=== PATIENT | male | born 1960 | race Caucasian/White ===

== ENCOUNTER 2017-01-22 09:59 | Emergency (ER) | payer MEDICAID, OTHER ==
--- NOTE | 2017-01-22 12:24 | ED ---
Psychiatric Complaint - HPI Summary HPI Summary: 56 male presents with complaints of feeling very anxious and agitated over the past couple of days. He states he needs to be put somewhere and strapped down. He has not taken his night time medications yet. States he gets anxious and breathes quickly when experiencing anxiety attacks. He does not have a reason for his complaints/symptoms. Patient denies alcohol or drug use. Admits to hallucinations and auditory voices. States "he watches people walk by". He has not eaten since yesterday morning because he is anxious, besides orange juice that "he drank really fast". Denies homicidal/suicidal ideations. Has previous psych history. PMHx of HTN and asthma. Denies any other pain or complaints at this time. - History Of Current Complaint Chief Complaint: EDMentalHealth Time Seen by Provider: 01/22/17 11:51 Hx Obtained From: Patient Character: Frustrated Aggravating Factor(s): Nothing Alleviating Factor(s): Nothing Associated Signs And Symptoms: Positive: Hostile, Hallucinating, Paranoid Behavior Related History: Positive For: Prior Psychiatric Issues Has Suicidal: Denies: Thoughts, With A Plan Has Homicidal: Denies: Thoughts, With A Plan - Allergies/Home Medications Allergies/Adverse Reactions: Allergies Allergy/AdvReac Type Severity Reaction Status Date / Time Lisinopril Allergy Intermediate Swelling Verified 01/22/17 10:01 Of Face,Lips,& Throat Home Medications: Home Medications Citalopram TAB* [CeleXA TAB*] 40 mg PO DAILY 01/22/17 [History Confirmed ] Triamterene/HCTZ 37.5-25 MG* 1 tab PO DAILY 01/22/17 [History Confirmed 01/22/17 ] PMH/Surg Hx/FS Hx/Imm Hx Endocrine/Hematology History: Denies: Hx Diabetes Cardiovascular History: Reports: Hx Hypertension - on meds Denies: Hx Pacemaker/ICD History: Reports: Hx Kidney Infection Musculoskeletal History: Reports: Hx Orthopedic Injury - hx. of right ankle fx, Other Musculoskeletal History - bilateral hip replacements Sensory History: Reports: Hx Contacts or Glasses, Hx Hearing Problem Denies: Hx Hearing Aid Opthamlomology History: Reports: Hx Contacts or Glasses Neurological History: Reports: Hx Developmental Delay, Hx Headaches Denies: Hx Dementia, Hx Migraine, Hx Nerve Disease, Hx Seizures, Hx Spinal Cord Injury, Hx Transient Ischemic Attacks (TIA) Psychiatric History: Reports: Hx Anxiety, Hx Depression Denies: Hx Eating Disorder, Hx Panic Disorder, Hx of Violent Episodes Against Others - Surgical History Surgery Procedure, Year, and Place: bilateral hip replacement, surgery to right ankle Hx Anesthesia Reactions: No - Immunization History Immunizations Up to Date: Yes Infectious Disease History: No Infectious Disease History: Denies: Hx Clostridium Difficile, Hx Hepatitis, Hx Human Immunodeficiency Virus (HIV), Hx of Known/Suspected MRSA, Hx Shingles, Hx Tuberculosis, Hx Known/ Suspected VRE, Hx Known/Suspected VRSA, History Other Infectious Disease, Traveled Outside the [place] in Last 30 Days - Family History Known Family History: Positive: None - Social History Alcohol Use: Rare Substance Use Type: Reports: None Smoking Status (MU): Current Every Day Smoker Type: Cigarettes Amount Used/How Often: 1/2 PPD Have You Smoked in the Last Year: Yes Review of Systems Constitutional: Negative Eyes: Negative Positive: Nasal Discharge Cardiovascular: Negative Respiratory: Negative Gastrointestinal: Negative Genitourinary: Negative Neurological: Negative Psychological: Normal All Other Systems Reviewed And Are Negative: Yes Physical Exam Triage Information Reviewed: Yes Vital Signs On Initial Exam: Initial Vitals Temp Pulse Resp BP Pulse Ox 97.5 F 90 20 129/81 95 01/22/17 10:02 01/22/17 10:02 01/22/17 10:02 01/22/17 10:02 01/22/17 10:02 Vital Signs Reviewed: Yes Appearance: Positive: Well-Appearing, No Pain Distress, Well-Nourished Skin: Positive: Warm, Skin Color Reflects Adequate Perfusion, Dry Head/Face: Positive: Normal Head/Face Inspection Eyes: Positive: Normal, EOMI, KARYN, Conjunctiva Clear ENT: Positive: Normal ENT inspection, Hearing grossly normal Neck: Positive: Supple, Nontender, No Lymphadenopathy Respiratory/Lung Sounds: Positive: Clear to Auscultation, Breath Sounds Present Cardiovascular: Positive: Normal, RRR, Pulses are Symmetrical in both Upper and Lower Extremities Abdomen Description: Positive: Nontender, No Organomegaly, Soft Bowel Sounds: Positive: Present Musculoskeletal: Positive: Normal, Strength/ROM Intact Neurological: Positive: Normal, Sensory/Motor Intact, Alert, Oriented to Person Place, Time, CN Intact II-III, Reflexes Intact, NV Bundle Intact Distally, Normal Gait, Facial Symmetry, Speech Normal Psychiatric: Positive: Anxious, Other - patient is shaking hands and feet during exam AVPU Assessment: Alert - Lyman Coma Scale Coma Scale Total: 15 Diagnostics - Vital Signs Vital Signs Temp Pulse Resp BP Pulse Ox 01/22/17 10:07 97.5 F 92 20 129/81 96 01/22/17 10:02 97.5 F 90 20 129/81 95 - Laboratory Result Diagrams: 01/22/17 12:33 01/22/17 12:33 Lab Statement: Any lab studies that have been ordered have been reviewed, and results considered in the medical decision making process. Re-Evaluation - Re-Evaluation First Eval Re-Evaluation Time: 13:00 Change: Unchanged - patient was doing well, eating and drinking Course/Dx - Course Course Of Treatment: patient medically cleared. will have mental health evaluation - Differential Dx/Clinical Impression Differential Diagnosis/HQI/PQRI: Positive: Acute Psychosis, Anxiety, Depression , Other Provider Diagnosis: Anxiety, Acute psychosis - Physician Notifications Patient Is Medically Stable For: Psych Evaluation Discharge - Discharge Plan Condition: Stable Disposition: OTHER Discharge Disposition Comment: signed out to Lenora Alcantara PA-C at shift change- Awaiting mental healt eval Referrals: Herb Jordan MD [Primary Care Provider] -
[2017-01-22 12:55] LABS: Hematocrit 45 % (42-52); Hemoglobin 15.5 g/dl (14.0-18.0); Mean Corpuscular HGB Conc 34 g/dl (31-36); Mean Corpuscular Hemoglobin 31 pg (27-31); Mean Corpuscular Volume 90 fL (80-94); Mean Platelet Volume 10 um3 (7.4-10.4); Red Blood Count 5.02 10^6/ul (4.0-5.4); Red Cell Distribution Width 13 % (10.5-15); White Blood Count 8.5 10^3/ul (3.5-10.8)
[2017-01-22 13:02] LABS: ALT 24 U/L (7-52); AST 26 U/L (13-39); Albumin 4.3 g/dL (3.2-5.2); Alkaline Phosphatase 62 U/L (34-104); Anion Gap 9 mmol/L (2-11); BUN/Creatinine Ratio 18.7 (8-20); Blood Urea Nitrogen 20 mg/dL (6-24); CO2 Carbon Dioxide 26 mmol/L (22-32); Calcium 9.9 mg/dL (8.6-10.3); Chloride 101 mmol/L (101-111); EGFR African American 91.3 (>60); Globulin 3.7 g/dL (2-4); Glucose 119 mg/dL (70-100); Potassium 3.3 mmol/L (3.5-5.0); Sodium 136 mmol/L (133-145)
[2017-01-22 14:23] LABS: Acetaminophen < 15 mcg/mL; Alcohol < 10 mg/dL (<10); Salicylate < 2.50 mg/dL (<30)
[2017-01-22 14:30] LABS: TSH (Thyroid Stimulating Horm) 0.76 mcIU/mL (0.34-5.60)
[2017-01-23 09:33] VITALS: BP 111/72
== END 2017-01-23 08:25 | disposition home or self-care (01) ==
LOC: ED 09:59
DX: F23 Brief psychotic disorder (principal); F41.9 Anxiety disorder, unspecified
CPT/HCPCS: 36415; 80053; 80320; 80329; 84443; 85025; 99285; G0480

== ENCOUNTER 2018-11-12 19:12 | Emergency (ER) | payer MEDICAID ==
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
[2018-11-13 02:06] VITALS: BP 131/87
== END 2018-11-13 02:06 | disposition home or self-care (01) ==
LOC: ED 19:12
DX: F32.9 Major depressive disorder, single episode, unspecified (principal); R45.851 Suicidal ideations; R45.850 Homicidal ideations; I10 Essential (primary) hypertension; Z96.643 Presence of artificial hip joint, bilateral; Z88.8 Allergy status to other drugs, medicaments and biological substances; F17.210 Nicotine dependence, cigarettes, uncomplicated
CPT/HCPCS: 99284

== ENCOUNTER 2018-11-17 13:54 | Inpatient (IN) | payer MEDICAID ==
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
[2018-11-17] MEDS ORDERED: LORazepam TAB(*) 0.5 MG PO PRN (17:46)
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
[2018-11-17] MEDS: Gabapentin CAP(*) 300 MG PO SCH (22:35)
[2018-11-17] MEDS: Metoprolol Tartrate TAB* 50 mg PO SCH (22:35)
[2018-11-17] MEDS: chlorproMAZINE TAB* 100 MG PO SCH (22:35)
[2018-11-17] MEDS: chlorproMAZINE TAB* 25 MG PO SCH (22:35)
[2018-11-18 07:30] LABS: ABS Basophils 0 10^3/ul (0-0.2); ABS Eosinophils 0.1 10^3/ul (0-0.6); ABS Lymphocytes 1.2 10^3/ul (1.0-4.8); ABS Monocytes 0.9 10^3/ul (0-0.8); ABS Neutrophils 3.3 10^3/ul (1.5-7.7); ABS Nucleated RBC 0 10^3/ul; Eosinophil % 1.3 %; Hematocrit 42 % (42-52); Hemoglobin 14.4 g/dl (14.0-18.0); Lymphocyte % 21.9 %; Mean Corpuscular HGB Conc 34 g/dl (31-36); Mean Corpuscular Hemoglobin 31 pg (27-31); Mean Corpuscular Volume 90 fL (80-94); Mean Platelet Volume 9.1 fL (7.4-10.4); Nucleated Red Blood Cells % 0.1; Platelet Count 182 10^3/ul (150-450); Red Blood Count 4.69 10^6/ul (4.00-5.40); Red Cell Distribution Width 13 % (10.5-15); White Blood Count 5.5 10^3/ul (3.5-10.8)
[2018-11-18 07:53] LABS: Albumin 3.7 g/dL (3.2-5.2); Albumin/Globulin Ratio 1.2 (1-3); BUN/Creatinine Ratio 14.5 (8-20); Calcium 9.3 mg/dL (8.6-10.3); EGFR African American 114.4 (>60); EGFR Non-African American 94.5 (>60); Globulin 3.1 g/dL (2-4); Magnesium 2.1 mg/dL (1.9-2.7); Potassium 3.5 mmol/L (3.5-5.0); Total Bilirubin 0.5 mg/dL (0.2-1.0); Total Protein 6.8 g/dL (6.4-8.9)
[2018-11-18 08:41] LABS: TSH (Thyroid Stimulating Horm) 3.05 mcIU/mL (0.34-5.60)
[2018-11-18] MEDS: Cyanocobalamin TAB* 500 MCG PO SCH (09:04)
[2018-11-18] MEDS: chlorproMAZINE TAB* 100 MG PO SCH ×2 (09:04→21:39)
[2018-11-18] MEDS: Triamterene/HCTZ 37.5-25 MG* CAP PO SCH (09:04)
[2018-11-18] MEDS: Metoprolol Tartrate TAB* 50 mg PO SCH ×3 (09:05→21:40)
[2018-11-18] MEDS: amLODIPine TAB* 5 MG PO SCH (09:05)
[2018-11-18] MEDS: Gabapentin CAP(*) 300 MG PO SCH ×3 (09:05→21:40)
[2018-11-18] MEDS: FLUoxetine CAP* 20 MG PO SCH (09:07)
--- NOTE | 2018-11-18 16:58 | PN ---
Subjective Date of Service: 11/18/18 Interval History: Pt seen and examined. Meds and labs reviewed. CC: Conjunctival pruritus ROS: Denied MOYA/dizziness, F/C, N/V, CP, SOB, increased cough, sputum production , abd pain, diarrhea, constipation, dysuria, myalgias, arthralgias, throat pain , and new skin lesions. The rest of the 14 point ROS are unremarkable. PHYSICAL EXAM: GEN APPEARANCE: Awake, not in acute distress HEENT: NC/AT, PERRLA, moist oral mucosa, (-) throat erythema, (+) injected sclerae, per pt, pruritic NECK: Soft, supple, (-) cervical LAD, (-)JVD HEART: S1S2 WNL, RRR, No MRG CHEST: CTA, BL, GAE, No W/R/R ABD: Soft, ND/NT, NABS 4x Q EXT: No C/C/E SKIN: Warm to touch PSYCH: No active psychosis, hallucinations, depression, SI/HI Objective Active Medications: Amlodipine Besylate (Norvasc Tab*) 10 mg PO DAILY [facility] Last Admin: 11/18/18 09:05 Dose: 10 mg Chlorpromazine HCl (Thorazine Tab*) 25 mg PO BEDTIME [facility] Last Admin: 11/17/18 22:35 Dose: 25 mg Chlorpromazine HCl (Thorazine Tab*) 100 mg PO QAM [facility] Last Admin: 11/18/18 09:04 Dose: 100 mg Chlorpromazine HCl (Thorazine Tab*) 300 mg PO BEDTIME [facility] Last Admin: 11/17/18 22:35 Dose: 300 mg Cyanocobalamin (Vitamin B12 Tab*) 1,000 mcg PO DAILY [facility] Last Admin: 11/18/18 09:04 Dose: 1,000 mcg Fluoxetine HCl (Prozac Cap*) 20 mg PO DAILY [facility] Last Admin: 11/18/18 09:07 Dose: 20 mg Gabapentin (Neurontin Cap(*)) 300 mg PO TID [facility] Last Admin: 11/18/18 14:09 Dose: 300 mg Lorazepam (Ativan Tab(*)) 0.5 mg PO BID PRN PRN Reason: AGITATION/ANXIETY Metoprolol Tartrate (Lopressor Tab*) 50 mg PO BID [facility] Last Admin: 11/18/18 09:06 Dose: Not Given Polymyxin/Trimethoprim Sulfate (Polytrim Ophth*) 1 drop BOTH EYES QID [facility] Stop: 11/25/18 16:59 Trazodone HCl (Desyrel Tab*) 150 mg PO BEDTIME PRN PRN Reason: SLEEP Triamterene/HCTZ (Dyazide Cap*) 1 cap PO DAILY [facility] Last Admin: 11/18/18 09:04 Dose: 1 cap Vital Signs - 8 hr 11/18/18 11/18/18 11/18/18 09:05 11:00 11:37 Temperature 97.2 F Pulse Rate 84 Respiratory 20 18 Rate Blood Pressure 104/68 (mmHg) O2 Sat by Pulse 98 Oximetry 11/18/18 11/18/18 14:09 16:38 Temperature Pulse Rate Respiratory 18 19 Rate Blood Pressure (mmHg) O2 Sat by Pulse Oximetry Oxygen Devices in Use Now: None Result Diagrams: 11/18/18 07:12 11/18/18 07:12 Microbiology and Other Data: Microbiology 11/17/18 22:40 Nasal Screen MRSA (PCR) - Final Nasal Mrsa Not Detected Assess/Plan/Problems-Billing Assessment: - Patient Problems (1) Conjunctivitis Current Visit: Yes Status: Acute Code(s): H10.9 - UNSPECIFIED CONJUNCTIVITIS SNOMED Code(s): 8448030 Comment: -Will place pt on polymyxin B/Trimethoprim ophthalmic solution (2) Hypertension Current Visit: No Status: Chronic Code(s): I10 - ESSENTIAL (PRIMARY) HYPERTENSION SNOMED Code(s): 86677774 Comment: -Well-controlled -Continue Triamtere/HCTZ, Metoprolol, and Amlodipine (3) Depression Current Visit: Yes Status: Acute Code(s): F32.9 - MAJOR DEPRESSIVE DISORDER , SINGLE EPISODE, UNSPECIFIED SNOMED Code(s): 73558306 Comment: -Well controlled -Continue Fluoxetine, Trazodone, and chlorpromazine (4) DVT prophylaxis Current Visit: No Status: Acute Code(s): [id number] - SNOMED Code(s): 421006716 Comment: -Continue to encourage ambulation ad libitum -Continue SCDs when in bed Status and Disposition: -[facility] care; placement pending
[2018-11-18] MEDS ORDERED: Mouth Piece, Nicotine* 1 EACH CARTRIDGE ONE (17:16)
[2018-11-18] MEDS: Nicotine Inhaler* 10 MG AMP INH PRN (17:26)
[2018-11-18] MEDS: Nicotine PATCH 21 MG/24 HR* PATCH TRANSDERM SCH (17:44)
[2018-11-18] MEDS: Polymyx/Trimethoprim OPTH* 10 ML BTL BOTH EYES SCH ×2 (20:08→21:44)
[2018-11-18] MEDS: chlorproMAZINE TAB* 25 MG PO SCH (21:40)
[2018-11-19] MEDS: Triamterene/HCTZ 37.5-25 MG* CAP PO SCH (07:44)
[2018-11-19] MEDS: Gabapentin CAP(*) 300 MG PO SCH ×3 (07:44→20:36)
[2018-11-19] MEDS: FLUoxetine CAP* 20 MG PO SCH (07:44)
[2018-11-19] MEDS: amLODIPine TAB* 5 MG PO SCH (07:44)
[2018-11-19] MEDS: Metoprolol Tartrate TAB* 50 mg PO SCH ×2 (07:45→20:36)
[2018-11-19] MEDS: chlorproMAZINE TAB* 100 MG PO SCH ×2 (07:45→20:37)
[2018-11-19] MEDS: Cyanocobalamin TAB* 500 MCG PO SCH (07:45)
[2018-11-19] MEDS: Nicotine PATCH 21 MG/24 HR* PATCH TRANSDERM SCH (07:46)
[2018-11-19] MEDS: Polymyx/Trimethoprim OPTH* 10 ML BTL BOTH EYES SCH ×4 (07:46→20:35)
--- NOTE | 2018-11-19 15:04 | PN ---
Subjective Date of Service: 11/19/18 Interval History: Pt seen and examined. Meds and labs reviewed. CC: N/A ROS: Denied MOYA/dizziness, F/C, N/V, CP, SOB, increased cough, sputum production , abd pain, diarrhea, constipation, dysuria, myalgias, arthralgias, throat pain , and new skin lesions. The rest of the 14 point ROS are unremarkable. PHYSICAL EXAM: GEN APPEARANCE: Awake, not in acute distress HEENT: NC/AT, PERRLA, moist oral mucosa, (-) throat erythema, (+) injected sclerae, BL, significantly improved from yesterday NECK: Soft, supple, (-) cervical LAD, (-)JVD HEART: S1S2 WNL, RRR, No MRG CHEST: CTA, BL, GAE, No W/R/R ABD: Soft, ND/NT, NABS 4x Q EXT: No C/C/E SKIN: Warm to touch PSYCH: No active psychosis, hallucinations, depression, SI/HI Objective Active Medications: Amlodipine Besylate (Norvasc Tab*) 10 mg PO DAILY [facility] Last Admin: 11/19/18 07:44 Dose: 10 mg Chlorpromazine HCl (Thorazine Tab*) 25 mg PO BEDTIME [facility] Last Admin: 11/18/18 21:40 Dose: 25 mg Chlorpromazine HCl (Thorazine Tab*) 100 mg PO QAM [facility] Last Admin: 11/19/18 07:45 Dose: 100 mg Chlorpromazine HCl (Thorazine Tab*) 300 mg PO BEDTIME [facility] Last Admin: 11/18/18 21:39 Dose: 300 mg Cyanocobalamin (Vitamin B12 Tab*) 1,000 mcg PO DAILY [facility] Last Admin: 11/19/18 07:45 Dose: 1,000 mcg Fluoxetine HCl (Prozac Cap*) 20 mg PO DAILY [facility] Last Admin: 11/19/18 07:44 Dose: 20 mg Gabapentin (Neurontin Cap(*)) 300 mg PO TID [facility] Last Admin: 11/19/18 13:59 Dose: 300 mg Lorazepam (Ativan Tab(*)) 0.5 mg PO BID PRN PRN Reason: AGITATION/ANXIETY Metoprolol Tartrate (Lopressor Tab*) 50 mg PO BID [facility] Last Admin: 11/19/18 07:45 Dose: 50 mg Nicotine (Nicotine Patch 21 Mg/24 Hr*) 1 patch TRANSDERM DAILY [facility] Last Admin: 11/19/18 07:46 Dose: Not Given Nicotine (Nicotine Inhaler*) 10 mg INH Q2H PRN PRN Reason: CRAVING Last Admin: 11/18/18 17:26 Dose: 10 mg Polymyxin/Trimethoprim Sulfate (Polytrim Ophth*) 1 drop BOTH EYES QID [facility] Stop: 11/25/18 16:59 Last Admin: 11/19/18 13:59 Dose: 1 drop Trazodone HCl (Desyrel Tab*) 150 mg PO BEDTIME PRN PRN Reason: SLEEP Triamterene/HCTZ (Dyazide Cap*) 1 cap PO DAILY [facility] Last Admin: 11/19/18 07:44 Dose: 1 cap Vital Signs - 8 hr 11/19/18 11/19/18 11/19/18 07:42 07:44 08:00 Temperature 98.4 F Pulse Rate 88 Respiratory 20 18 16 Rate Blood Pressure 119/67 (mmHg) O2 Sat by Pulse 98 Oximetry 11/19/18 11/19/18 10:01 13:59 Temperature Pulse Rate Respiratory 14 16 Rate Blood Pressure (mmHg) O2 Sat by Pulse Oximetry Oxygen Devices in Use Now: None Result Diagrams: 11/18/18 07:12 11/18/18 07:12 Microbiology and Other Data: Microbiology 11/17/18 22:40 Nasal Screen MRSA (PCR) - Final Nasal Mrsa Not Detected Assess/Plan/Problems-Billing Assessment: - Patient Problems (1) Conjunctivitis Current Visit: Yes Status: Acute Code(s): H10.9 - UNSPECIFIED CONJUNCTIVITIS SNOMED Code(s): 0389052 Comment: -Continue on polymyxin B/Trimethoprim ophthalmic solution x7 days, abx day#1 ( started yesterday afternoon) (2) Hypertension Current Visit: No Status: Chronic Code(s): I10 - ESSENTIAL (PRIMARY) HYPERTENSION SNOMED Code(s): 83573752 Comment: -Well-controlled -Continue Triamtere/HCTZ, Metoprolol, and Amlodipine (3) Depression Current Visit: Yes Status: Acute Code(s): F32.9 - MAJOR DEPRESSIVE DISORDER , SINGLE EPISODE, UNSPECIFIED SNOMED Code(s): 99716319 Comment: -Well controlled -Continue Fluoxetine, Trazodone, and chlorpromazine (4) DVT prophylaxis Current Visit: No Status: Acute Code(s): QAJ7571 - SNOMED Code(s): 116384448 Comment: -Continue to encourage ambulation ad libitum -Continue SCDs when in bed Status and Disposition: -Longterm care; placement pending
[2018-11-19] MEDS ORDERED: Mouth Piece, Nicotine* 1 EACH CARTRIDGE ONE (15:59)
[2018-11-19] MEDS: Nicotine Inhaler* 10 MG AMP INH PRN (15:59)
[2018-11-19] MEDS: chlorproMAZINE TAB* 25 MG PO SCH (20:36)
[2018-11-20] MEDS: chlorproMAZINE TAB* 100 MG PO SCH ×2 (08:14→20:10)
[2018-11-20] MEDS: Cyanocobalamin TAB* 500 MCG PO SCH (08:15)
[2018-11-20] MEDS: Polymyx/Trimethoprim OPTH* 10 ML BTL BOTH EYES SCH ×4 (08:15→20:11)
[2018-11-20] MEDS: Gabapentin CAP(*) 300 MG PO SCH ×3 (08:15→20:12)
[2018-11-20] MEDS: Triamterene/HCTZ 37.5-25 MG* CAP PO SCH (08:15)
[2018-11-20] MEDS: amLODIPine TAB* 5 MG PO SCH (08:16)
[2018-11-20] MEDS: Nicotine PATCH 21 MG/24 HR* PATCH TRANSDERM SCH (08:16)
[2018-11-20] MEDS: Metoprolol Tartrate TAB* 50 mg PO SCH ×2 (08:16→20:11)
[2018-11-20] MEDS: FLUoxetine CAP* 20 MG PO SCH (08:16)
--- NOTE | 2018-11-20 16:52 | PN ---
Subjective Date of Service: 11/20/18 Interval History: Pt seen and examined. Meds and labs reviewed. CC: N/A ROS: Denied MOYA/dizziness, F/C, N/V, CP, SOB, increased cough, sputum production , abd pain, diarrhea, constipation, dysuria, myalgias, arthralgias, throat pain , and new skin lesions. The rest of the 14 point ROS are unremarkable. PHYSICAL EXAM: GEN APPEARANCE: Awake, not in acute distress HEENT: NC/AT, PERRLA, moist oral mucosa, (-) throat erythema, (+)minor redness of conjunctiva, significantly improved from previous NECK: Soft, supple, (-) cervical LAD, (-)JVD HEART: S1S2 WNL, RRR, No MRG CHEST: CTA, BL, GAE, No W/R/R ABD: Soft, ND/NT, NABS 4x Q EXT: No C/C/E SKIN: Warm to touch PSYCH: No active psychosis, hallucinations, depression, SI/HI Objective Active Medications: Amlodipine Besylate (Norvasc Tab*) 10 mg PO DAILY [facility] Last Admin: 11/20/18 08:16 Dose: 10 mg Chlorpromazine HCl (Thorazine Tab*) 25 mg PO BEDTIME [facility] Last Admin: 11/19/18 20:36 Dose: 25 mg Chlorpromazine HCl (Thorazine Tab*) 100 mg PO QAM [facility] Last Admin: 11/20/18 08:14 Dose: 100 mg Chlorpromazine HCl (Thorazine Tab*) 300 mg PO BEDTIME [facility] Last Admin: 11/19/18 20:37 Dose: 300 mg Cyanocobalamin (Vitamin B12 Tab*) 1,000 mcg PO DAILY [facility] Last Admin: 11/20/18 08:15 Dose: 1,000 mcg Fluoxetine HCl (Prozac Cap*) 20 mg PO DAILY [facility] Last Admin: 11/20/18 08:16 Dose: 20 mg Gabapentin (Neurontin Cap(*)) 300 mg PO TID [facility] Last Admin: 11/20/18 14:21 Dose: 300 mg Lorazepam (Ativan Tab(*)) 0.5 mg PO BID PRN PRN Reason: AGITATION/ANXIETY Metoprolol Tartrate (Lopressor Tab*) 50 mg PO BID [facility] Last Admin: 11/20/18 08:16 Dose: 50 mg Nicotine (Nicotine Patch 21 Mg/24 Hr*) 1 patch TRANSDERM DAILY [facility] Last Admin: 11/20/18 08:16 Dose: Not Given Nicotine (Nicotine Inhaler*) 10 mg INH Q2H PRN PRN Reason: CRAVING Last Admin: 11/19/18 15:59 Dose: 10 mg Polymyxin/Trimethoprim Sulfate (Polytrim Ophth*) 1 drop BOTH EYES QID [facility] Stop: 11/25/18 16:59 Last Admin: 11/20/18 12:03 Dose: 1 drop Trazodone HCl (Desyrel Tab*) 150 mg PO BEDTIME PRN PRN Reason: SLEEP Triamterene/HCTZ (Dyazide Cap*) 1 cap PO DAILY [facility] Last Admin: 11/20/18 08:15 Dose: 1 cap Vital Signs - 8 hr 11/20/18 11/20/18 10:15 14:21 Respiratory 16 18 Rate Oxygen Devices in Use Now: None Result Diagrams: 11/18/18 07:12 11/18/18 07:12 Microbiology and Other Data: Microbiology 11/17/18 22:40 Nasal Screen MRSA (PCR) - Final Nasal Mrsa Not Detected Assess/Plan/Problems-Billing Assessment: - Patient Problems (1) Conjunctivitis Current Visit: Yes Status: Acute Code(s): H10.9 - UNSPECIFIED CONJUNCTIVITIS SNOMED Code(s): 2856900 Comment: -Continue on polymyxin B/Trimethoprim ophthalmic solution x7 days, abx day#2 (2) Hypertension Current Visit: No Status: Chronic Code(s): I10 - ESSENTIAL (PRIMARY) HYPERTENSION SNOMED Code(s): 93417785 Comment: -Well-controlled -Continue Triamtere/HCTZ, Metoprolol, and Amlodipine (3) Depression Current Visit: Yes Status: Acute Code(s): F32.9 - MAJOR DEPRESSIVE DISORDER , SINGLE EPISODE, UNSPECIFIED SNOMED Code(s): 00877372 Comment: -Well controlled -Continue Fluoxetine, Trazodone, and chlorpromazine (4) DVT prophylaxis Current Visit: No Status: Acute Code(s): [id number] - SNOMED Code(s): 324958932 Comment: -Continue to encourage ambulation ad libitum -Continue SCDs when in bed Status and Disposition: -[facility] care; placement pending
[2018-11-20] MEDS: chlorproMAZINE TAB* 25 MG PO SCH (20:11)
[2018-11-21] MEDS: Cyanocobalamin TAB* 500 MCG PO SCH (07:57)
[2018-11-21] MEDS: chlorproMAZINE TAB* 100 MG PO SCH ×2 (07:57→20:08)
[2018-11-21] MEDS: Gabapentin CAP(*) 300 MG PO SCH ×3 (07:58→20:08)
[2018-11-21] MEDS: FLUoxetine CAP* 20 MG PO SCH (07:58)
[2018-11-21] MEDS: Polymyx/Trimethoprim OPTH* 10 ML BTL BOTH EYES SCH ×4 (07:59→20:07)
[2018-11-21] MEDS: Nicotine PATCH 21 MG/24 HR* PATCH TRANSDERM SCH (08:02)
[2018-11-21] MEDS: amLODIPine TAB* 5 MG PO SCH (08:55)
[2018-11-21] MEDS: Metoprolol Tartrate TAB* 50 mg PO SCH ×2 (08:55→20:08)
[2018-11-21] MEDS: Triamterene/HCTZ 37.5-25 MG* CAP PO SCH (08:56)
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
[2018-11-21] MEDS: chlorproMAZINE TAB* 25 MG PO SCH (20:08)
[2018-11-22] MEDS: Polymyx/Trimethoprim OPTH* 10 ML BTL BOTH EYES SCH ×4 (08:13→20:23)
[2018-11-22] MEDS: Gabapentin CAP(*) 300 MG PO SCH ×3 (08:14→20:23)
[2018-11-22] MEDS: Cyanocobalamin TAB* 500 MCG PO SCH (08:14)
[2018-11-22] MEDS: amLODIPine TAB* 5 MG PO SCH (08:14)
[2018-11-22] MEDS: FLUoxetine CAP* 20 MG PO SCH (08:14)
[2018-11-22] MEDS: Metoprolol Tartrate TAB* 50 mg PO SCH ×2 (08:14→20:23)
[2018-11-22] MEDS: Triamterene/HCTZ 37.5-25 MG* CAP PO SCH (08:14)
[2018-11-22] MEDS: chlorproMAZINE TAB* 100 MG PO SCH ×2 (08:14→20:22)
[2018-11-22] MEDS: Nicotine PATCH 21 MG/24 HR* PATCH TRANSDERM SCH (08:15)
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
[2018-11-22] MEDS: chlorproMAZINE TAB* 25 MG PO SCH (20:22)
[2018-11-23] MEDS: Triamterene/HCTZ 37.5-25 MG* CAP PO SCH (08:46)
[2018-11-23] MEDS: FLUoxetine CAP* 20 MG PO SCH (08:46)
[2018-11-23] MEDS: Gabapentin CAP(*) 300 MG PO SCH ×3 (08:46→20:12)
[2018-11-23] MEDS: chlorproMAZINE TAB* 100 MG PO SCH ×2 (08:47→20:12)
[2018-11-23] MEDS: amLODIPine TAB* 5 MG PO SCH (08:47)
[2018-11-23] MEDS: Polymyx/Trimethoprim OPTH* 10 ML BTL BOTH EYES SCH ×4 (08:47→20:13)
[2018-11-23] MEDS: Metoprolol Tartrate TAB* 50 mg PO SCH ×2 (08:47→20:12)
[2018-11-23] MEDS: Cyanocobalamin TAB* 500 MCG PO SCH (08:47)
[2018-11-23] MEDS: Nicotine PATCH 21 MG/24 HR* PATCH TRANSDERM SCH (10:40)
[2018-11-23] MEDS: chlorproMAZINE TAB* 25 MG PO SCH (20:12)
[2018-11-24] MEDS: Polymyx/Trimethoprim OPTH* 10 ML BTL BOTH EYES SCH ×4 (09:46→20:25)
[2018-11-24] MEDS: chlorproMAZINE TAB* 100 MG PO SCH ×2 (09:47→20:27)
[2018-11-24] MEDS: Gabapentin CAP(*) 300 MG PO SCH ×3 (09:47→20:26)
[2018-11-24] MEDS: Triamterene/HCTZ 37.5-25 MG* CAP PO SCH (09:47)
[2018-11-24] MEDS: amLODIPine TAB* 5 MG PO SCH (09:47)
[2018-11-24] MEDS: FLUoxetine CAP* 20 MG PO SCH (09:47)
[2018-11-24] MEDS: Metoprolol Tartrate TAB* 50 mg PO SCH ×2 (09:47→20:26)
[2018-11-24] MEDS: Cyanocobalamin TAB* 500 MCG PO SCH (09:47)
[2018-11-24] MEDS: Nicotine PATCH 21 MG/24 HR* PATCH TRANSDERM SCH (11:01)
[2018-11-24] MEDS: traZODone TAB* 100 MG PO PRN (20:26)
[2018-11-24] MEDS: chlorproMAZINE TAB* 25 MG PO SCH (20:27)
[2018-11-25] MEDS: amLODIPine TAB* 5 MG PO SCH ×2 (08:31→08:43)
[2018-11-25] MEDS: Polymyx/Trimethoprim OPTH* 10 ML BTL BOTH EYES SCH ×2 (08:42→13:06)
[2018-11-25] MEDS: Metoprolol Tartrate TAB* 50 mg PO SCH ×2 (08:43→21:32)
[2018-11-25] MEDS: chlorproMAZINE TAB* 100 MG PO SCH ×2 (08:43→21:32)
[2018-11-25] MEDS: Gabapentin CAP(*) 300 MG PO SCH ×3 (08:43→21:32)
[2018-11-25] MEDS: FLUoxetine CAP* 20 MG PO SCH (08:43)
[2018-11-25] MEDS: Triamterene/HCTZ 37.5-25 MG* CAP PO SCH (08:43)
[2018-11-25] MEDS: Cyanocobalamin TAB* 500 MCG PO SCH (08:43)
[2018-11-25] MEDS: Nicotine PATCH 21 MG/24 HR* PATCH TRANSDERM SCH (08:46)
[2018-11-25] MEDS: chlorproMAZINE TAB* 25 MG PO SCH (21:32)
[2018-11-26] MEDS: Cyanocobalamin TAB* 500 MCG PO SCH (10:08)
[2018-11-26] MEDS: chlorproMAZINE TAB* 100 MG PO SCH ×2 (10:08→20:08)
[2018-11-26] MEDS: Gabapentin CAP(*) 300 MG PO SCH ×3 (10:08→20:08)
[2018-11-26] MEDS: Triamterene/HCTZ 37.5-25 MG* CAP PO SCH (10:09)
[2018-11-26] MEDS: Metoprolol Tartrate TAB* 50 mg PO SCH ×2 (10:09→20:08)
[2018-11-26] MEDS: FLUoxetine CAP* 20 MG PO SCH (10:09)
[2018-11-26] MEDS: amLODIPine TAB* 5 MG PO SCH (10:09)
[2018-11-26] MEDS: Nicotine PATCH 21 MG/24 HR* PATCH TRANSDERM SCH (11:28)
[2018-11-26] MEDS: chlorproMAZINE TAB* 25 MG PO SCH (20:08)
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
[2018-11-27] MEDS: Metoprolol Tartrate TAB* 50 mg PO SCH ×2 (09:46→20:03)
[2018-11-27] MEDS: Gabapentin CAP(*) 300 MG PO SCH ×3 (09:46→20:04)
[2018-11-27] MEDS: Triamterene/HCTZ 37.5-25 MG* CAP PO SCH (09:46)
[2018-11-27] MEDS: Cyanocobalamin TAB* 500 MCG PO SCH (09:46)
[2018-11-27] MEDS: chlorproMAZINE TAB* 100 MG PO SCH ×2 (09:46→20:04)
[2018-11-27] MEDS: FLUoxetine CAP* 20 MG PO SCH (09:47)
[2018-11-27] MEDS: Nicotine PATCH 21 MG/24 HR* PATCH TRANSDERM SCH (09:47)
[2018-11-27] MEDS: amLODIPine TAB* 5 MG PO SCH (09:47)
[2018-11-27 13:06] LABS: ABS Basophils 0 10^3/ul (0-0.2); ABS Eosinophils 0 10^3/ul (0-0.6); ABS Lymphocytes 0.3 10^3/ul (1.0-4.8); ABS Neutrophils 10.6 10^3/ul (1.5-7.7); ABS Nucleated RBC 0 10^3/ul; Eosinophil % 0.1 %; Hematocrit 46 % (42-52); Hemoglobin 15.9 g/dl (14.0-18.0); Lymphocyte % 2.7 %; Mean Corpuscular HGB Conc 34 g/dl (31-36); Mean Corpuscular Hemoglobin 31 pg (27-31); Mean Corpuscular Volume 91 fL (80-94); Mean Platelet Volume 8.6 fL (7.4-10.4); Nucleated Red Blood Cells % 0.1; Platelet Count 245 10^3/ul (150-450); Red Blood Count 5.09 10^6/ul (4.00-5.40); Red Cell Distribution Width 13 % (10.5-15)
[2018-11-27 13:26] LABS: BUN/Creatinine Ratio 21.9 (8-20); Calcium 9.2 mg/dL (8.6-10.3); EGFR African American 87.2 (>60); Magnesium 1.6 mg/dL (1.9-2.7); Potassium 3.4 mmol/L (3.5-5.0)
[2018-11-27] MEDS ORDERED: Magnesium Sulfate 2 GM IV* 2 GM/50 ML BAG IVPB ONE (14:40)
[2018-11-27] MEDS: Pantoprazole IV* 40 MG IV SCH (18:18)
[2018-11-27] MEDS: KCL 20 MEQ/100 ML IVPREMIX* 20 MEQ/100 ML BAG IV SCH ×3 (18:18→22:42)
[2018-11-27] MEDS: chlorproMAZINE TAB* 25 MG PO SCH (20:04)
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
[2018-11-28 06:23] LABS: ABS Basophils 0 10^3/ul (0-0.2); ABS Eosinophils 0.1 10^3/ul (0-0.6); ABS Lymphocytes 1.3 10^3/ul (1.0-4.8); ABS Monocytes 1.2 10^3/ul (0-0.8); ABS Neutrophils 4.2 10^3/ul (1.5-7.7); ABS Nucleated RBC 0 10^3/ul; Hematocrit 42 % (42-52); Hemoglobin 14.1 g/dl (14.0-18.0); Lymphocyte % 18.7 %; Mean Corpuscular HGB Conc 34 g/dl (31-36); Mean Corpuscular Hemoglobin 31 pg (27-31); Mean Corpuscular Volume 90 fL (80-94); Mean Platelet Volume 8.8 fL (7.4-10.4); Nucleated Red Blood Cells % 0.1; Platelet Count 221 10^3/ul (150-450); Red Blood Count 4.61 10^6/ul (4.00-5.40); Red Cell Distribution Width 13 % (10.5-15); White Blood Count 6.8 10^3/ul (3.5-10.8)
[2018-11-28 06:46] LABS: BUN/Creatinine Ratio 19.5 (8-20); Calcium 8.6 mg/dL (8.6-10.3); EGFR African American 124.7 (>60); EGFR Non-African American 103.1 (>60); Magnesium 2.2 mg/dL (1.9-2.7); Potassium 3.2 mmol/L (3.5-5.0)
[2018-11-28] MEDS: Gabapentin CAP(*) 300 MG PO SCH ×3 (10:15→20:08)
[2018-11-28] MEDS: Triamterene/HCTZ 37.5-25 MG* CAP PO SCH (10:15)
[2018-11-28] MEDS: amLODIPine TAB* 5 MG PO SCH (10:15)
[2018-11-28] MEDS: FLUoxetine CAP* 20 MG PO SCH (10:15)
[2018-11-28] MEDS: Cyanocobalamin TAB* 500 MCG PO SCH (10:15)
[2018-11-28] MEDS: chlorproMAZINE TAB* 100 MG PO SCH ×2 (10:15→20:08)
[2018-11-28] MEDS: Metoprolol Tartrate TAB* 50 mg PO SCH ×2 (10:16→20:09)
[2018-11-28] MEDS: Nicotine PATCH 21 MG/24 HR* PATCH TRANSDERM SCH (10:16)
[2018-11-28] MEDS: Potassium Chlor TAB* 20 MEQ TAB.ER PO SCH ×3 (14:36→18:41)
[2018-11-28] MEDS: Pantoprazole IV* 40 MG IV SCH (14:36)
[2018-11-28] MEDS: chlorproMAZINE TAB* 25 MG PO SCH (20:07)
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
[2018-11-29 07:11] LABS: BUN/Creatinine Ratio 13.3 (8-20); Calcium 8.6 mg/dL (8.6-10.3); EGFR African American 166.3 (>60); EGFR Non-African American 137.4 (>60)
[2018-11-29] MEDS: amLODIPine TAB* 5 MG PO SCH (08:14)
[2018-11-29] MEDS: chlorproMAZINE TAB* 100 MG PO SCH ×2 (08:16→22:34)
[2018-11-29] MEDS: Gabapentin CAP(*) 300 MG PO SCH ×3 (08:16→22:32)
[2018-11-29] MEDS: Cyanocobalamin TAB* 500 MCG PO SCH (08:17)
[2018-11-29] MEDS: Triamterene/HCTZ 37.5-25 MG* CAP PO SCH (08:17)
[2018-11-29] MEDS: FLUoxetine CAP* 20 MG PO SCH (08:17)
[2018-11-29] MEDS: Metoprolol Tartrate TAB* 50 mg PO SCH ×2 (08:18→22:33)
[2018-11-29] MEDS: Nicotine PATCH 21 MG/24 HR* PATCH TRANSDERM SCH (08:18)
[2018-11-29] MEDS: Lactobacillus Acidophilus* 1 TAB PO SCH ×2 (08:41→22:33)
[2018-11-29] MEDS: chlorproMAZINE TAB* 25 MG PO SCH (22:33)
[2018-11-30] MEDS: chlorproMAZINE TAB* 100 MG PO SCH ×2 (10:25→21:18)
[2018-11-30] MEDS: Lactobacillus Acidophilus* 1 TAB PO SCH ×2 (10:26→21:19)
[2018-11-30] MEDS: amLODIPine TAB* 5 MG PO SCH (10:26)
[2018-11-30] MEDS: Gabapentin CAP(*) 300 MG PO SCH ×3 (10:26→21:19)
[2018-11-30] MEDS: FLUoxetine CAP* 20 MG PO SCH (10:26)
[2018-11-30] MEDS: Triamterene/HCTZ 37.5-25 MG* CAP PO SCH (10:26)
[2018-11-30] MEDS: Metoprolol Tartrate TAB* 50 mg PO SCH ×2 (10:26→21:19)
[2018-11-30] MEDS: Cyanocobalamin TAB* 500 MCG PO SCH (10:26)
[2018-11-30] MEDS: Nicotine PATCH 21 MG/24 HR* PATCH TRANSDERM SCH (10:29)
[2018-11-30] MEDS: chlorproMAZINE TAB* 25 MG PO SCH (21:18)
[2018-12-01] MEDS: FLUoxetine CAP* 20 MG PO SCH (09:01)
[2018-12-01] MEDS: chlorproMAZINE TAB* 100 MG PO SCH ×2 (09:01→20:47)
[2018-12-01] MEDS: Gabapentin CAP(*) 300 MG PO SCH ×3 (09:01→20:45)
[2018-12-01] MEDS: Cyanocobalamin TAB* 500 MCG PO SCH (09:02)
[2018-12-01] MEDS: Lactobacillus Acidophilus* 1 TAB PO SCH ×2 (09:02→20:45)
[2018-12-01] MEDS: Metoprolol Tartrate TAB* 50 mg PO SCH ×2 (09:03→20:46)
[2018-12-01] MEDS: amLODIPine TAB* 5 MG PO SCH (09:03)
[2018-12-01] MEDS: Triamterene/HCTZ 37.5-25 MG* CAP PO SCH (09:03)
[2018-12-01] MEDS: Nicotine PATCH 21 MG/24 HR* PATCH TRANSDERM SCH (09:06)
[2018-12-01] MEDS: chlorproMAZINE TAB* 25 MG PO SCH (20:45)
[2018-12-02] MEDS: Nicotine PATCH 21 MG/24 HR* PATCH TRANSDERM SCH (08:20)
[2018-12-02] MEDS: chlorproMAZINE TAB* 100 MG PO SCH ×2 (08:20→21:00)
[2018-12-02] MEDS: Lactobacillus Acidophilus* 1 TAB PO SCH ×2 (08:20→20:59)
[2018-12-02] MEDS: FLUoxetine CAP* 20 MG PO SCH (08:20)
[2018-12-02] MEDS: Gabapentin CAP(*) 300 MG PO SCH ×3 (08:20→20:59)
[2018-12-02] MEDS: Triamterene/HCTZ 37.5-25 MG* CAP PO SCH (08:21)
[2018-12-02] MEDS: Cyanocobalamin TAB* 500 MCG PO SCH (08:21)
[2018-12-02] MEDS: amLODIPine TAB* 5 MG PO SCH (08:21)
[2018-12-02] MEDS: Metoprolol Tartrate TAB* 50 mg PO SCH ×2 (08:22→20:59)
[2018-12-02] MEDS: chlorproMAZINE TAB* 25 MG PO SCH (20:59)
[2018-12-03] MEDS: FLUoxetine CAP* 20 MG PO SCH (09:01)
[2018-12-03] MEDS: Lactobacillus Acidophilus* 1 TAB PO SCH ×2 (09:01→20:19)
[2018-12-03] MEDS: amLODIPine TAB* 5 MG PO SCH (09:01)
[2018-12-03] MEDS: Cyanocobalamin TAB* 500 MCG PO SCH (09:01)
[2018-12-03] MEDS: Triamterene/HCTZ 37.5-25 MG* CAP PO SCH (09:01)
[2018-12-03] MEDS: Gabapentin CAP(*) 300 MG PO SCH ×3 (09:02→20:19)
[2018-12-03] MEDS: Nicotine PATCH 21 MG/24 HR* PATCH TRANSDERM SCH (09:02)
[2018-12-03] MEDS: chlorproMAZINE TAB* 100 MG PO SCH ×2 (09:02→20:18)
[2018-12-03] MEDS: Metoprolol Tartrate TAB* 50 mg PO SCH ×2 (09:02→20:19)
[2018-12-03] MEDS ORDERED: Magnesium Hydroxide LIQ* 30 ML UDC PO ONE (09:28)
[2018-12-03] MEDS: chlorproMAZINE TAB* 25 MG PO SCH (20:18)
[2018-12-03] MEDS: Docusate CAP* 100 MG PO SCH (20:19)
[2018-12-04] MEDS: amLODIPine TAB* 5 MG PO SCH (08:50)
[2018-12-04] MEDS: Nicotine PATCH 21 MG/24 HR* PATCH TRANSDERM SCH (08:50)
[2018-12-04] MEDS: chlorproMAZINE TAB* 100 MG PO SCH ×2 (09:06→20:13)
[2018-12-04] MEDS: Gabapentin CAP(*) 300 MG PO SCH ×3 (09:07→20:13)
[2018-12-04] MEDS: Triamterene/HCTZ 37.5-25 MG* CAP PO SCH (09:07)
[2018-12-04] MEDS: Metoprolol Tartrate TAB* 50 mg PO SCH ×2 (09:07→20:13)
[2018-12-04] MEDS: FLUoxetine CAP* 20 MG PO SCH (09:07)
[2018-12-04] MEDS: Lactobacillus Acidophilus* 1 TAB PO SCH ×2 (09:07→20:13)
[2018-12-04] MEDS: Cyanocobalamin TAB* 500 MCG PO SCH (09:07)
[2018-12-04] MEDS: Docusate CAP* 100 MG PO SCH ×2 (09:09→20:13)
[2018-12-04] MEDS: chlorproMAZINE TAB* 25 MG PO SCH (20:13)
[2018-12-05] MEDS: Nicotine PATCH 21 MG/24 HR* PATCH TRANSDERM SCH (07:45)
[2018-12-05] MEDS: amLODIPine TAB* 5 MG PO SCH (07:45)
[2018-12-05] MEDS: Docusate CAP* 100 MG PO SCH ×2 (07:46→20:49)
[2018-12-05] MEDS: FLUoxetine CAP* 20 MG PO SCH (08:51)
[2018-12-05] MEDS: Triamterene/HCTZ 37.5-25 MG* CAP PO SCH (08:51)
[2018-12-05] MEDS: Gabapentin CAP(*) 300 MG PO SCH ×3 (08:51→20:51)
[2018-12-05] MEDS: Metoprolol Tartrate TAB* 50 mg PO SCH ×2 (08:51→20:51)
[2018-12-05] MEDS: Lactobacillus Acidophilus* 1 TAB PO SCH ×2 (08:51→20:51)
[2018-12-05] MEDS: Cyanocobalamin TAB* 500 MCG PO SCH (08:51)
[2018-12-05] MEDS: chlorproMAZINE TAB* 100 MG PO SCH ×2 (08:51→20:51)
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
[2018-12-05] MEDS: chlorproMAZINE TAB* 25 MG PO SCH (20:51)
[2018-12-06] MEDS: Docusate CAP* 100 MG PO SCH ×2 (08:02→19:15)
[2018-12-06] MEDS: chlorproMAZINE TAB* 100 MG PO SCH ×2 (08:02→19:09)
[2018-12-06] MEDS: Lactobacillus Acidophilus* 1 TAB PO SCH ×2 (08:02→19:08)
[2018-12-06] MEDS: FLUoxetine CAP* 20 MG PO SCH (08:02)
[2018-12-06] MEDS: Metoprolol Tartrate TAB* 50 mg PO SCH ×2 (08:02→19:09)
[2018-12-06] MEDS: Triamterene/HCTZ 37.5-25 MG* CAP PO SCH (08:02)
[2018-12-06] MEDS: Cyanocobalamin TAB* 500 MCG PO SCH (08:03)
[2018-12-06] MEDS: Gabapentin CAP(*) 300 MG PO SCH ×3 (08:03→19:09)
[2018-12-06] MEDS: amLODIPine TAB* 5 MG PO SCH (08:06)
[2018-12-06] MEDS ORDERED: Magnesium Hydroxide LIQ* 30 ML UDC PO ONE (15:37)
[2018-12-06] MEDS: chlorproMAZINE TAB* 25 MG PO SCH (19:09)
[2018-12-06] MEDS: traZODone TAB* 100 MG PO PRN (19:12)
[2018-12-06] MEDS: Polyethylene Glycol 3350* 17 GM PACKET PO SCH (19:15)
[2018-12-07] MEDS: chlorproMAZINE TAB* 100 MG PO SCH ×2 (09:41→20:26)
[2018-12-07] MEDS: Gabapentin CAP(*) 300 MG PO SCH ×3 (09:41→20:27)
[2018-12-07] MEDS: Triamterene/HCTZ 37.5-25 MG* CAP PO SCH (09:42)
[2018-12-07] MEDS: FLUoxetine CAP* 20 MG PO SCH (09:42)
[2018-12-07] MEDS: Docusate CAP* 100 MG PO SCH ×2 (09:42→23:32)
[2018-12-07] MEDS: amLODIPine TAB* 5 MG PO SCH (09:42)
[2018-12-07] MEDS: Cyanocobalamin TAB* 500 MCG PO SCH (09:43)
[2018-12-07] MEDS: Polyethylene Glycol 3350* 17 GM PACKET PO SCH ×2 (09:45→23:32)
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
[2018-12-07] MEDS: Lactobacillus Acidophilus* 1 TAB PO SCH ×2 (12:53→20:26)
[2018-12-07] MEDS: Metoprolol Tartrate TAB* 50 mg PO SCH ×2 (15:10→20:26)
[2018-12-07] MEDS: chlorproMAZINE TAB* 25 MG PO SCH (20:26)
[2018-12-07] MEDS: traZODone TAB* 100 MG PO PRN (20:26)
[2018-12-08] MEDS: chlorproMAZINE TAB* 100 MG PO SCH (10:05)
[2018-12-08] MEDS: Gabapentin CAP(*) 300 MG PO SCH (10:05)
[2018-12-08] MEDS: amLODIPine TAB* 5 MG PO SCH (10:05)
[2018-12-08] MEDS: Lactobacillus Acidophilus* 1 TAB PO SCH (10:05)
[2018-12-08] MEDS: Cyanocobalamin TAB* 500 MCG PO SCH (10:05)
[2018-12-08] MEDS: Docusate CAP* 100 MG PO SCH (10:06)
[2018-12-08] MEDS: FLUoxetine CAP* 20 MG PO SCH (10:06)
[2018-12-08] MEDS: Metoprolol Tartrate TAB* 50 mg PO SCH (10:06)
[2018-12-08] MEDS: Triamterene/HCTZ 37.5-25 MG* CAP PO SCH (10:06)
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
[2018-12-08] MEDS: Polyethylene Glycol 3350* 17 GM PACKET PO SCH (10:09)
[2018-12-08 10:34] VITALS: BP 120/89
== END 2018-12-08 11:10 | DRG 758 ==
LOC: ED 13:54 → OBSVTOIN 19:30 → MED 19:30
PROVIDERS: ADMIT Student in an Organized Health Care Education/Training Program; ATTEND Student in an Organized Health Care Education/Training Program
DX: F91.8 Other conduct disorders (principal); I10 Essential (primary) hypertension; Z96.643 Presence of artificial hip joint, bilateral; R62.50 Unspecified lack of expected normal physiological development in childhood; H10.9 Unspecified conjunctivitis; F41.9 Anxiety disorder, unspecified; F63.9 Impulse disorder, unspecified; F17.210 Nicotine dependence, cigarettes, uncomplicated; Z98.1 Arthrodesis status; Z82.49 Family history of ischemic heart disease and other diseases of the circulatory system; Z80.3 Family history of malignant neoplasm of breast; Z88.8 Allergy status to other drugs, medicaments and biological substances; Z59.0 Homelessness; K52.9 Noninfective gastroenteritis and colitis, unspecified; W06.XXXA Fall from bed, initial encounter; Y92.239 Unspecified place in hospital as the place of occurrence of the external cause
CPT/HCPCS: 36415; 80048; 80053; 83735; 84100; 84443; 85025; 87045; 87046; 87641; 87899; 93005; 99285; 99406; A9270-GY; J3475; J3480